=== PATIENT | female | born 1970 | race Two or more races ===

== ENCOUNTER → 2025-05-11 | Outpatient (CLI) | payer BC, SELFPAY ==
--- NOTE | 2025-05-11 09:16 | EKG_ITS ---
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
[2025-05-11 09:41] LABS: Basophils # (Auto) 0.1 Thou/mm3 (0.0-0.2); Basophils % (Auto) 1 % (0-2.5); Eosinophils # (Auto) 0.4 Thou/mm3 (0.0-0.5); Eosinophils % (Auto) 5 % (0-10); Hematocrit 37.5 % (36.0-46.0); Hemoglobin 13.5 g/dL (12.0-16.0); Immature Granulocytes Auto 0.04 Thou/mm3 (0.00-0.00); Lymphocytes # (Auto) 1.8 Thou/mm3 (1.0-4.8); Lymphocytes % (Auto) 21 % (10-50); Mean Corpuscular HGB Conc 36.0 g/dl (31.0-37.0); Mean Corpuscular Hemoglobin 26.1 pg (25.0-35.0); Mean Corpuscular Volume 73 fL (80-100); Monocytes # (Auto) 0.5 Thou/mm3 (0.0-0.8); Monocytes % (Auto) 6 % (0-12); Neutrophils # (Auto) 5.6 Thou/mm3 (1.8-7.7); Neutrophils % (Auto) 67 % (37-80); Nucleated Red Blood Cell # 0.00 Thou/mm3 (0.00-0.00); Nucleated Red Blood Cell % 0 /100 WBC (0); Platelet Count 300 Thou/mm3 (140-440); RDW Standard Deviation 47.5 fL (36.4-46.3); Red Blood Count 5.17 Miln/mm3 (4.00-5.20); White Blood Count 8.4 Thou/mm3 (3.6-11.0)
[2025-05-11 09:49] LABS: Glucose Estimated Average 143 mg/dL (80-131); Hemoglobin A1C 6.6 % Hgb (4.8-6.0)
[2025-05-11 09:59] LABS: Alanine Aminotransferase 48 U/L (10-49); Albumin, Serum 4.5 gm/dL (3.5-5.0); Albumin/Globulin Ratio 1.8 (1.2-2.2); Alkaline Phosphatase 88 U/L (46-116); Anion Gap 12 (7-16); Aspartate Amino Transferase 35 U/L (0-34); BUN/Creatinine Ratio 17 Ratio (12-20); Bilirubin,Total 0.6 mg/dL (0.3-1.2); Blood Urea Nitrogen 15 mg/dL (9-23); Calcium 9.4 mg/dL (8.3-10.6); Calcium (Corrected) 9.4 mg/dL (8.5-10.1); Carbon Dioxide 27.6 mMol/L (20.0-31.0); Chloride 98 mMol/L (98-107); Creatinine (Component) 0.9 mg/dL (0.6-1.3); Globulin 2.5 gm/dL (2.3-3.5); Glucose 124 mg/dL (74-106); Osmolality,Calculated 277 (275-295); Phosphorous 3.3 mg/dL (2.4-5.1); Potassium 4.3 mMol/L (3.4-5.1); Sodium 138 mMol/L (136-145); Total Protein 7.0 gm/dL (5.7-8.2); eGFR > 60 See Note
== END | disposition home or self-care (01) ==
PROVIDERS: PCP Nurse Practitioner Family; Referring Provider Orthopaedic Surgery; Visit Provider Orthopaedic Surgery
DX: S43.431A Superior glenoid labrum lesion of right shoulder, initial encounter (principal); M25.311 Other instability, right shoulder
CPT/HCPCS: 36415; 80053; 83036; 84100; 85025; 93005

== ENCOUNTER 2025-05-24 04:22 | Emergency (ER) | payer BC, SELFPAY ==
[2025-05-24 04:25] VITALS: BP 166/83; PULSE 96; RESP 19; TEMP 36.6; O2SAT 96
--- NOTE | 2025-05-24 04:40 | XR_ITS ---
Examination: PA chest single view TECHNIQUE: Upright PA chest single view Date and time: May 24, 2025, 0454 hours Comparison May 02, 2024 INDICATIONS: Fever chills chest pain today. FINDINGS: Pneumonia left base. Normal heart size Right lung clear Osseous structures are intact IMPRESSION: Pneumonia left base
--- NOTE | 2025-05-24 04:41 | EDRME_ITS ---
Rapid Medical Screening Exam [facility] Arrival date/time: 05/24/25 04:22 55F with history of DM, HTN, and anxiety, as well as R rotator cuff surgery yesterday presents to ED with several hours of fevers/chills, CP, SOB, dizziness, and N/V. Patient took a Xanax w/o relief. Patient took her regular dose of long-acting insulin and drank an orange juice prior to arrival. Chief Complaint: General Adult/Misc Complain Vital signs: Vital Signs Temperature 97.9 F 05/24/25 04:25 Pulse Rate 96 05/24/25 04:25 Respiratory Rate 19 05/24/25 04:25 Blood Pressure 166/83 H 05/24/25 04:25 Pulse Oximetry (%) 96 05/24/25 04:25 Oxygen Delivery Method Room Air 05/24/25 04:25
[2025-05-24] MEDS: ONDANSETRON ODT 4 MG TABRAP PO (05:40)
[2025-05-24] MEDS: DEXAMETHASONE SOD PHOS INJ 10 MG/ML VIAL PO (05:40)
[2025-05-24 05:56] VITALS: BP 141/86; PULSE 89; RESP 23; TEMP 36.6; O2SAT 92
--- NOTE | 2025-05-24 06:12 | PC.NURSE ---
PT ARRIVED TO ED BY FOR TAKING TOO MUCH INSULIN . PT STATES THAT THEY TOOK AROUND 20 TO 30 UNITS OF TRESIBA (LONG ACTING INSULIN). AT BEDSIDE, BLOOD SUGAR WAS TAKEN (79). PT REPORTS HEADACHE AND SHARP CHEST PAIN 5/10. PT STATES TO HAVE HAD A MINI HEART ATTACK IN THE PAST. EKG WAS DONE AND GIVEN TO PROVIDER. SEE VITAL SIGN IN FLOW SHEET. PT DOESNT APPEAR TO BE SWEATY OR COOL TO THE TOUCH. PT IS A&O X 4. AT BEDSIDE. PT DID STATE THEY DRANK 5 CAPRISONS. PT REQUESTED MORE JUICE. 2 ORANGE GIVEN. PT REPORTS SOB AND NAUSEA. MEDS WERE GIVEN (SEE MAR).
[2025-05-24 06:21] LABS: Basophils # (Auto) 0.1 Thou/mm3 (0.0-0.2); Basophils % (Auto) 1 % (0-2.5); Eosinophils # (Auto) 0.2 Thou/mm3 (0.0-0.5); Eosinophils % (Auto) 2 % (0-10); Hematocrit 37.4 % (36.0-46.0); Hemoglobin 12.9 g/dL (12.0-16.0); Immature Granulocytes Auto 0.04 Thou/mm3 (0.00-0.00); Lymphocytes # (Auto) 2.3 Thou/mm3 (1.0-4.8); Lymphocytes % (Auto) 22 % (10-50); Mean Corpuscular HGB Conc 34.5 g/dl (31.0-37.0); Mean Corpuscular Hemoglobin 26.3 pg (25.0-35.0); Mean Corpuscular Volume 76 fL (80-100); Monocytes # (Auto) 0.7 Thou/mm3 (0.0-0.8); Monocytes % (Auto) 7 % (0-12); Neutrophils # (Auto) 7.4 Thou/mm3 (1.8-7.7); Neutrophils % (Auto) 69 % (37-80); Nucleated Red Blood Cell # 0.00 Thou/mm3 (0.00-0.00); Nucleated Red Blood Cell % 0 /100 WBC (0); Platelet Count 321 Thou/mm3 (140-440); RDW Standard Deviation 51.7 fL (36.4-46.3); Red Blood Count 4.91 Miln/mm3 (4.00-5.20); White Blood Count 10.7 Thou/mm3 (3.6-11.0)
[2025-05-24 06:41] LABS: Alanine Aminotransferase 58 U/L (10-49); Albumin, Serum 4.4 gm/dL (3.5-5.0); Albumin/Globulin Ratio 1.8 (1.2-2.2); Alkaline Phosphatase 88 U/L (46-116); Anion Gap 11 (7-16); Aspartate Amino Transferase 59 U/L (0-34); BUN/Creatinine Ratio 11 Ratio (12-20); Bilirubin,Total 0.4 mg/dL (0.3-1.2); Blood Urea Nitrogen 9 mg/dL (9-23); Calcium 9.1 mg/dL (8.3-10.6); Calcium (Corrected) 9.1 mg/dL (8.5-10.1); Carbon Dioxide 27.4 mMol/L (20.0-31.0); Chloride 104 mMol/L (98-107); Creatinine (Component) 0.8 mg/dL (0.6-1.3); Globulin 2.5 gm/dL (2.3-3.5); Glucose 77 mg/dL (74-106); Lipase 23 U/L (12-53); Osmolality,Calculated 280 (275-295); Potassium 3.6 mMol/L (3.4-5.1); Sodium 142 mMol/L (136-145); Total Protein 6.9 gm/dL (5.7-8.2); Troponin I < 0.020 ng/mL (0.0-0.045); eGFR > 60 See Note
[2025-05-24 06:49] LABS: Amphetamine/Methamp Scrn,U Negative (Negative); Barbiturate Screen,Urine Negative (Negative); Benzodiazepines Screen,Urine Positive (Negative); Benzoylecgonine Screen, Ur Negative (Negative); Fentanyl Screen,Urine Negative (Negative); Opiate Screen,Urine Positive (Negative); THC Screen,Urine Negative (Negative)
--- NOTE | 2025-05-24 07:00 | PD.EDADULT ---
ED General RME/HPI General Chief complaint: General Adult/Misc Complain Stated complaint: CP, DIZZY, POSSIBLE OD WITH INSULIN Time Seen by Provider: 05/24/25 04:49 Arrival date/time: 05/24/25 04:22 RME / HPI RME / HPI narrative: 05/24/25 04:22 55F with history of DM, HTN, and anxiety, as well as R rotator cuff surgery yesterday presents to ED with several hours of fevers/chills, CP, SOB, dizziness, and N/V. Patient took a Xanax w/o relief. Patient took her regular dose of long-acting insulin and drank an orange juice prior to arrival. DR. GODOY MAIN ED EVALUATION 55 year old female patient with history of hypertension and insulin-dependant diabetes presents to the ED for evaluation of feeling weak, dizzy, shaky, and elevated heart rate. Reports her symptoms today are similar to when her blood sugar drops and this morning was 70s. States she drank several boxes of juice that only temporarily improved sugar levels. Concerned she may have taken too much of her insulin (although took her regular dose), stating in the past sugar normalizes after one juice box. No other associated symptoms or complaints reported. Denies fever, chills, sweating. Denies chest pain, cough, shortness of breath. Denies diarrhea, constipation. Denies dysuria, urinary frequency and urgency. Related Data Home Medications ?Medication ?Instructions ?Recorded ?Confirmed lisinopril 10 mg tablet 20 mg PO QDAY #0 tabs 05/09/15 05/03/24 alprazolam 1 mg tablet 1 mg PO TID 05/03/24 05/03/24 amlodipine 5 mg tablet 10 mg PO DAILY 05/03/24 05/03/24 atorvastatin 10 mg tablet 10 mg PO DAILY 05/03/24 05/03/24 empagliflozin 10 mg tablet 10 mg PO DAILY 05/03/24 05/03/24 (Jardiance) gabapentin 300 mg capsule 300 mg PO DAILY 05/03/24 05/03/24 vilazodone 40 mg tablet 40 mg PO DAILY 05/03/24 05/03/24 Held on 05/04/24. Instructions: Resume on 05/18/24. Resume after seeing your psychiatrist Allergies Allergy/AdvReac Type Severity Reaction Status Date / Time Penicillins Allergy Mild RASH Verified 05/24/25 04:23 Review of Systems Review of Systems Systems Reviewed: All systems reviewed, normal except as documented Past Medical History Past Medical History CARDIAC: Positive Hypertension; Negative Congestive Heart Failure RESPIRATORY: Negative Chronic Obstructive Pulmonary Disease (COPD) GENITOURINARY: Negative Renal Disease ENDOCRINE: Positive Diabetes Mellitus Type 2; Negative Diabetes Mellitus Type 1 PSYCHO/SOCIAL: Positive Anxiety Social History SMOKING STATUS: Never smoker ED Exam Narrative Physical exam: GENERAL APPEARANCE: alert and oriented x 4, well-developed, well-nourished, no acute distress HEENT: Normocephalic, atraumatic; pupils equal, round, reactive to light; EOMI; mucous membranes pink, moist; oropharynx clear NECK: Supple LUNGS: CTABL; no wheezes, no rales, no rhonchi HEART: Regular rate, regular rhythm; normal S1, S2; no murmurs ABDOMEN: non distended; normal BS; soft, no tenderness, no guarding, no rebound; no masses, no organomegaly, no hernia BACK: no CVA tenderness EXTREMITIES: atraumatic; no edema NEUROLOGIC: awake; alert and oriented x4; cranial nerves II-XII grossly intact; no focal sensory or motor deficits PSYCHIATRIC: appropriate mood and affect SKIN: warm, dry, normal color; no rashes Course Quality Measures none Orders Category Date Time Status Blood glucose [Bedside Blood Glucose] Q1HR Care 05/24/25 05:40 Active EKG (ED ONLY) *Do not use* NOW Care 05/24/25 04:26 Completed Fingerstick [Bedside Blood Glucose] NOW Care 05/24/25 04:30 Completed Insert IV NOW Care 05/24/25 06:18 Active EKG (ED Only) Stat Exams 05/24/25 04:26 Ordered XR chest 1V portable Stat Exams 05/24/25 04:40 Completed CBC Stat Lab 05/24/25 06:03 Completed Comprehensive Metabolic Panel Stat Lab 05/24/25 06:03 Completed Drug Screen,Urine Stat Lab 05/24/25 06:23 Completed Lipase Stat Lab 05/24/25 06:03 Completed Troponin I Stat Lab 05/24/25 06:03 Completed Dexamethasone Inj [Decadron Inj] Med 05/24/25 04:40 Discontinued 10 mg PO X1 ONE Ondansetron Odt [Zofran Odt] Med 05/24/25 04:40 Discontinued 4 mg PO X1 ONE Reevaluation(s) Reevaluation #1: Patient remains clinically stable throughout the emergency department visit. We reviewed all the results, analysis, and treatment plans. Patient is amenable to discharge. Strict return precautions were outlined. Patient was discharged in stable condition. Repeat BS 209. Time: 08:37 Vital Signs Vital signs: Vital Signs Temperature 97.9 F 05/24/25 04:25 Pulse Rate 96 05/24/25 04:25 Respiratory Rate 19 05/24/25 04:25 Blood Pressure 166/83 H 05/24/25 04:25 Pulse Oximetry (%) 96 05/24/25 04:25 Oxygen Delivery Method Room Air 05/24/25 04:25 Pulse ox is 96% on room air which is adequate. Critical Care Time Critical Care Time Critical Care Time: No Discharge Plan Plan Patient Disposition: HOME (Self Care) Prescriptions/Referrals Prescriptions/Med Rec: No Action lisinopril 10 MG tablet 20 mg PO QDAY Qty: 0 atorvastatin 10 mg tablet 10 mg PO DAILY Patient Comments: TAKE 1 TABLET BY MOUTH EVERY DAY alprazolam 1 mg tablet 1 mg PO TID Patient Comments: TAKE 1 TABLET BY MOUTH THREE TIMES A DAY amlodipine 5 mg tablet 10 mg PO DAILY Patient Comments: TAKE 1 TABLET BY MOUTH EVERY DAY gabapentin 300 mg capsule 300 mg PO DAILY Patient Comments: TAKE 1 CAPSULE BY MOUTH THREE TIMES A DAY vilazodone 40 mg tablet 40 mg PO DAILY Patient Comments: TAKE 1 TABLET BY MOUTH EVERY DAY WITH FOOD Jardiance 10 mg tablet 10 mg PO DAILY Patient Comments: TAKE 1 TABLET (10 MG) BY MOUTH DAILY. Referrals: DORA COSTA [Primary Care Provider] - In 1 week Problem List Clinical Impression: Hypoglycemia Patient/Caregiver Discharge Instructions Education Materials: Hypoglycemia (Low Blood Sugar) Print Language: Maltese Stand Alone Forms: Debra Award Info., Patient Portal Info Letter MDM Narrative MDM hospital course: Danelle Barroso am scribing for and in the presence of Dr. Godoy. Clinical Information Provided by patient Medical Records Reviewed [facility] I reviewed admission from 05/02/2024 through 05/04/2024 Meds/Rx Considered, not Ordered None Labs/Rad/Tests considered, not Ordered None Chronic Illness/Social Conditions which may negatively complicate care or outcome(s)-explain: None or not applicable EKG EKG not done Lab Interpretation Labs: interpreted by nj Lab(s) interpretation(s): Glucose 77 on CMP All other labs unremarkable Imaging Imaging interpretation: see narrative above Radiology reports / interpretation(s): Ordering Physician: Ravinder Carvalho PA-C Date of Service: 05/24/25 Procedure(s): XR chest 1V portable Accession Number(s): [id number] cc: Alejandro Jaimes MD; Ravinder Carvalho PA-C; DORA COSTA ~ Examination: PA chest single view TECHNIQUE: Upright PA chest single view Date and time: May 24, 2025, 0454 hours Comparison May 02, 2024 INDICATIONS: Fever chills chest pain today. FINDINGS: Pneumonia left base. Normal heart size Right lung clear Osseous structures are intact IMPRESSION: Pneumonia left base Dictated By: Alejandro Jaimes MD Signed By: <Electronically signed by Alejandro Jaimes MD in OV> 05/24/25 0752 Medication Administration(s) Medication Administration History Discontinued Medications Dexamethasone Sodium Phosphate (Dexamethasone Sod Phos Inj 10 Mg/Ml Vial) 10 mg PO X1 ONE Stop: 05/24/25 04:41 Last Admin: 05/24/25 05:40 Dose: 10 mg Documented By: AMMON Comments: GIVEN PO Ondansetron HCl (Ondansetron Odt 4 Mg Tabrap) 4 mg PO X1 ONE; Protocol Stop: 05/24/25 04:41 Last Admin: 05/24/25 05:40 Dose: 4 mg Documented By: AMMON See above Diagnosis Most likely dx, and/or detailed dx discussion: Hypoglycemia Dispositon Disposition: Discharge Home
[2025-05-24 07:25] VITALS: BP 127/81; PULSE 89; RESP 18; TEMP 36.6; O2SAT 91
--- NOTE | 2025-05-24 07:30 | PC.NURSE ---
PT AWAKE IN BED NEXT TO HER IN ROOM PT CONVERSATIONAL PAIN ASSESSED, BED RAILS X2 BED LOW LOCKED CALL LIGHT WITHIN REACH, IV FLUSHED
[2025-05-24 09:05] VITALS: BP 118/70; PULSE 79; RESP 18; TEMP 36.8; O2SAT 93; BMI 31.2
[2025-05-24 09:08] VITALS: BP 118/70; PULSE 72; RESP 18; TEMP 37.2; O2SAT 94
== END 2025-05-24 09:12 | disposition home or self-care (01) ==
PROVIDERS: Physician Assistant; Emergency Provider Emergency Medicine; PCP Nurse Practitioner Family
DX: E11.649 Type 2 diabetes mellitus with hypoglycemia without coma (principal); J18.9 Pneumonia, unspecified organism; Z79.84 Long term (current) use of oral hypoglycemic drugs
CPT/HCPCS: 36415; 71045; 80053; 80307; 83690; 84484; 85025; 93005; 99283; J1100; Q0162